=== PATIENT | female | born 1985 | race Caucasian/White ===

== ENCOUNTER 2023-05-03 08:07 | Day surgery (SDC) | payer MEDICAID ==
[~2023-05-03] VITALS: Ht 154.9 cm; Wt 92.5 kg
[2023-05-03 08:57] LABS: HCG,QUAL RESULT NEGATIVE (NEGATIVE)
[2023-05-03] MEDS ORDERED: BENZOCAINE 20% 0.5mL UD SPRAY MM ONE (09:24)
[2023-05-03] MEDS ORDERED: MIDAZOLAM HCL 5 MG/5 ML VIAL ONE (09:25)
[2023-05-03] MEDS ORDERED: MEPERIDINE 100 MG INJ. 100 MG/ML VIAL ONE (09:25)
[2023-05-03 13:46] VITALS: O2SAT 97
[2023-05-03 19:18] VITALS: BP_SYST 140; PULSE 90; RESP 22
== END 2023-05-03 10:15 | disposition home or self-care (01) ==
LOC: SDS 08:07 → SMU 08:08 → SDS 10:15
PROVIDERS: ATTEND Student in an Organized Health Care Education/Training Program
DX: R11.2 Nausea with vomiting, unspecified (principal); K29.50 Unspecified chronic gastritis without bleeding; D50.0 Iron deficiency anemia secondary to blood loss (chronic); Z98.84 Bariatric surgery status
CPT/HCPCS: 43239; 99152; 84703; 88305; 88312; 88313; G0378; J2250; J2175